=== PATIENT | male | born 1940 | race Caucasian/White ===

== ENCOUNTER 2017-07-27 21:01 | Inpatient (IN) | payer MEDICARE, OTHER ==
[~2017-07-27] VITALS: Ht 182.9 cm; Wt 73.6 kg
[2017-07-27] MEDS ORDERED: LOSA25TA5 PO (21:56)
[2017-07-27] MEDS ORDERED: ATOR10TA9 PO (21:56)
[2017-07-27] MEDS ORDERED: MECL-76 PO (21:56)
[2017-07-27] MEDS ORDERED: DONE10TA14 PO (21:56)
[2017-07-27] MEDS ORDERED: METO25TA91 PO (21:56)
[2017-07-27] MEDS ORDERED: TAMS0.4C2 PO (21:56)
[2017-07-27] MEDS ORDERED: SODIUM CHLORIDE 0.9% 1,000ML IVBOLUS ONE (22:00)
[2017-07-27] MEDS ORDERED: SODIUM CHLORIDE FLUSH 10ML SYR IVF ONE (22:00)
[2017-07-27 22:13] LABS: BASOPHILS # (AUTO) 0.03 x10^3/uL (0-0.1); BASOPHILS % (AUTO) 1 % (0-1); EOSINOPHILS % (AUTO) 2 % (1-7); LYMPHOCYTES # (AUTO) 1.89 x10^3/uL (1-3.4); LYMPHOCYTES % (AUTO) 33 % (22-44); MD NO; MEAN CORPUSCULAR HEMOGLOBIN 25.4 pg (27.5-34.5); MEAN CORPUSCULAR HGB CONC 32.3 g/dL (33.2-36.2); MEAN CORPUSCULAR VOLUME 78.5 fL (81-97); MEAN PLATELET VOLUME 8.3 fL (7.4-10.4); MONOCYTES # (AUTO) 0.69 x10^3/uL (0.2-0.8); MONOCYTES % (AUTO) 12 % (2-9); NEUTROPHILS # (AUTO) 3.03 x10^3/uL (1.8-6.8); NEUTROPHILS % (AUTO) 53 % (42-75); PLATELET COUNT 198 x10^3/uL (130-400); RED BLOOD COUNT 5.42 x10^6/uL (4.38-5.82); RED CELL DISTRIBUTION WIDTH 15.4 % (9.4-14.8)
[2017-07-27 22:25] LABS: ALANINE AMINOTRANSFERASE 19 U/L (12-78); ALBUMIN 3.5 g/dL (3.4-5.0); ANION GAP 6 mmol/L (5-15); CALCIUM 8.7 mg/dL (8.5-10.1); CHLORIDE 109 mmol/L (98-107); CREATININE 1.31 mg/dL (0.7-1.3)
[2017-07-27 22:30] LABS: ALKALINE PHOSPHATASE 89 U/L (45-117); BILIRUBIN,TOTAL 1.1 mg/dL (0.2-1.0); TOTAL PROTEIN 6.9 g/dL (6.4-8.2); TROPONIN I < 0.015 ng/mL (0.000-0.045)
[2017-07-27 22:31] LABS: ACETAMINOPHEN < 2 mcg/mL (10-30); SALICYLATE LEVEL < 1.7 mg/dL (2.8-20.0)
[2017-07-27 23:30] LABS: CULTURE INDICATED? YES; MICROSCOPIC INDICATED
[2017-07-27 23:37] LABS: AMPHETAMINE SCREEN, URINE Negative (Negative); BARBITURATE SCREEN, URINE Negative (Negative); BENZODIAZEPINE SCREEN, URINE Negative (Negative); CANNABINOID SCREEN, URINE Negative (Negative); COCAINE SCREEN, URINE Negative (Negative); METHADONE SCREEN, URINE Negative (Negative); OPIATE SCREEN, URINE Negative (Negative)
[2017-07-28] MEDS: LACTULOSE 20 GM/30 ML UDC PO SCH ×3 (00:45→20:24)
[2017-07-28] MEDS ORDERED: POLYETHYLENE GLYCOL 17 GM PACKET PO PRN (01:00)
[2017-07-28] MEDS: HEPARIN 5,000 UNITS/ML, 1ML SQ SCH ×4 (01:00→18:29)
[2017-07-28] MEDS ORDERED: ONDANSETRON 2MG/ML, 2ML IVPush PRN (01:00)
[2017-07-28] MEDS ORDERED: BISACODYL 10 MG SUPP PR PRN (01:00)
[2017-07-28 01:35] VITALS: BP 147/73
[2017-07-28] MEDS: TAMSULOSIN 0.4 MG CAP.ER.24H PO SCH ×2 (01:57→20:25)
[2017-07-28] MEDS: METOPROLOL SUCCINATE 25 MG TAB.ER.24H PO SCH ×2 (01:57→20:25)
[2017-07-28] MEDS: CEFTRIAXONE 1,000 MG in SODIUM CHLORIDE 0.9% 50 ML IVPB SCH (01:57)
[2017-07-28] MEDS: ATORVASTATIN 10 MG TABLET PO SCH ×2 (01:58→20:25)
[2017-07-28 05:44] LABS: BASOPHILS # (AUTO) 0.04 x10^3/uL (0-0.1); BASOPHILS % (AUTO) 1 % (0-1); EOSINOPHILS # (AUTO) 0.19 x10^3/uL (0-0.4); EOSINOPHILS % (AUTO) 4 % (1-7); LYMPHOCYTES % (AUTO) 38 % (22-44); MD NO; MEAN CORPUSCULAR HEMOGLOBIN 25.3 pg (27.5-34.5); MEAN CORPUSCULAR HGB CONC 32.4 g/dL (33.2-36.2); MEAN CORPUSCULAR VOLUME 78.2 fL (81-97); MEAN PLATELET VOLUME 8.3 fL (7.4-10.4); MONOCYTES # (AUTO) 0.67 x10^3/uL (0.2-0.8); MONOCYTES % (AUTO) 13 % (2-9); NEUTROPHILS # (AUTO) 2.38 x10^3/uL (1.8-6.8); NEUTROPHILS % (AUTO) 45 % (42-75); PLATELET COUNT 174 x10^3/uL (130-400); RED BLOOD COUNT 5.04 x10^6/uL (4.38-5.82); RED CELL DISTRIBUTION WIDTH 15.2 % (9.4-14.8)
[2017-07-28 05:52] LABS: ANION GAP 5 mmol/L (5-15); CALCIUM 7.9 mg/dL (8.5-10.1); CHLORIDE 111 mmol/L (98-107)
[2017-07-28 05:56] LABS: ALANINE AMINOTRANSFERASE 14 U/L (12-78); ALKALINE PHOSPHATASE 75 U/L (45-117); BILIRUBIN,TOTAL 0.8 mg/dL (0.2-1.0); CREATININE 1.09 mg/dL (0.7-1.3); TOTAL PROTEIN 5.8 g/dL (6.4-8.2)
[2017-07-28 07:56] VITALS: BP 106/55
[2017-07-28] MEDS: MECLIZINE CHEWABLE 25 MG TAB PO SCH ×2 (10:29→20:25)
[2017-07-28] MEDS: SENNA/DOCUSATE TABLET PO SCH (10:29)
[2017-07-28] MEDS: DONEPEZIL 10 MG TABLET PO SCH (10:29)
[2017-07-28] MEDS: LOSARTAN 25MG TABLET PO SCH ×2 (10:29→20:24)
[2017-07-28] MEDS: SODIUM CHLORIDE FLUSH 10ML SYR IVF SCH ×2 (10:29→20:24)
[2017-07-28 14:57] VITALS: BP 138/75
[2017-07-28 19:11] VITALS: BP 107/58
[2017-07-29] MEDS: CEFTRIAXONE 1,000 MG in SODIUM CHLORIDE 0.9% 50 ML IVPB SCH (02:03)
[2017-07-29] MEDS: HEPARIN 5,000 UNITS/ML, 1ML SQ SCH ×3 (02:03→18:06)
[2017-07-29 02:30] VITALS: BP 110/70
[2017-07-29 08:02] VITALS: BP 117/70
[2017-07-29] MEDS: MECLIZINE CHEWABLE 25 MG TAB PO SCH ×2 (08:56→20:34)
[2017-07-29] MEDS: DONEPEZIL 10 MG TABLET PO SCH (08:56)
[2017-07-29] MEDS: SODIUM CHLORIDE FLUSH 10ML SYR IVF SCH ×2 (08:57→20:34)
[2017-07-29] MEDS: LOSARTAN 25MG TABLET PO SCH ×2 (08:57→20:34)
[2017-07-29] MEDS: LACTULOSE 20 GM/30 ML UDC PO SCH (08:57)
[2017-07-29] MEDS: SENNA/DOCUSATE TABLET PO SCH (08:58)
[2017-07-29 14:34] LABS: FOLATE LEVEL 17.9 ng/mL (3.1-17.5); THYROID STIMULATING HORMONE 1.46 mIU/L (0.358-3.740)
[2017-07-29] MEDS ORDERED: ERGOCALCIFEROL 50,000 UNIT CAPSULE PO SCH (15:00)
[2017-07-29 15:08] VITALS: BP 126/72
[2017-07-29 19:59] VITALS: BP 144/87
[2017-07-29] MEDS: TAMSULOSIN 0.4 MG CAP.ER.24H PO SCH (20:34)
[2017-07-29] MEDS: ATORVASTATIN 10 MG TABLET PO SCH (20:34)
[2017-07-29] MEDS: METOPROLOL SUCCINATE 25 MG TAB.ER.24H PO SCH (21:22)
[2017-07-30] MEDS: HEPARIN 5,000 UNITS/ML, 1ML SQ SCH ×4 (02:30→16:06)
[2017-07-30] MEDS: CEFTRIAXONE 1,000 MG in SODIUM CHLORIDE 0.9% 50 ML IVPB SCH (02:39)
[2017-07-30 03:02] VITALS: BP 112/68
[2017-07-30 07:31] VITALS: BP 106/62
[2017-07-30] MEDS: SENNA/DOCUSATE TABLET PO SCH (07:59)
[2017-07-30] MEDS: LOSARTAN 25MG TABLET PO SCH ×2 (08:04→22:10)
[2017-07-30] MEDS: DONEPEZIL 10 MG TABLET PO SCH ×2 (08:10→08:13)
[2017-07-30] MEDS: MECLIZINE CHEWABLE 25 MG TAB PO SCH ×3 (08:10→22:10)
[2017-07-30] MEDS: SODIUM CHLORIDE FLUSH 10ML SYR IVF SCH ×2 (08:11→22:12)
[2017-07-30 14:20] VITALS: BP 109/66
[2017-07-30 19:03] VITALS: BP 107/64
[2017-07-30] MEDS: TAMSULOSIN 0.4 MG CAP.ER.24H PO SCH (22:10)
[2017-07-30] MEDS: ATORVASTATIN 10 MG TABLET PO SCH (22:10)
[2017-07-30] MEDS: METOPROLOL SUCCINATE 25 MG TAB.ER.24H PO SCH (22:11)
[2017-07-31 01:09] VITALS: BP 130/74
[2017-07-31 07:03] VITALS: BP 122/75
[2017-07-31] MEDS: HEPARIN 5,000 UNITS/ML, 1ML SQ SCH ×2 (07:24)
[2017-07-31] MEDS: MECLIZINE CHEWABLE 25 MG TAB PO SCH (07:25)
[2017-07-31] MEDS: SODIUM CHLORIDE FLUSH 10ML SYR IVF SCH (07:25)
[2017-07-31] MEDS: LOSARTAN 25MG TABLET PO SCH (07:26)
[2017-07-31] MEDS: DONEPEZIL 10 MG TABLET PO SCH (07:26)
[2017-07-31] MEDS: SENNA/DOCUSATE TABLET PO SCH (07:29)
== END 2017-07-31 14:21 | disposition home or self-care (01) | DRG 689 ==
LOC: ED 23:34 → EDIP 07-28 00:30 → 3NE 07-28 01:37 → DCLOUNGE 07-31 14:12
PROVIDERS: ADMIT Internal Medicine; ATTEND Internal Medicine
DX: N39.0 Urinary tract infection, site not specified (principal); G93.40 Encephalopathy, unspecified; F03.90 Unspecified dementia, unspecified severity, without behavioral disturbance, psychotic disturbance, mood disturbance, and anxiety; E55.9 Vitamin D deficiency, unspecified; E78.5 Hyperlipidemia, unspecified; I10 Essential (primary) hypertension; N40.0 Benign prostatic hyperplasia without lower urinary tract symptoms; Z81.8 Family history of other mental and behavioral disorders; Z82.0 Family history of epilepsy and other diseases of the nervous system; Z95.1 Presence of aortocoronary bypass graft; Z90.89 Acquired absence of other organs
CPT/HCPCS: 36415; 70450; 71045; 76700; 80053; 80074; 80307; 80329; 81001; 82140; 82306; 82607; 82728; 82746; 83540; 83550; 84443; 84484; 85025; 87040; 87086; 93005; 99285; J0696; J1644; 92523-GN; G0480; J7030